=== PATIENT | female | born 1940 | race Caucasian/White ===

== ENCOUNTER 2016-03-04 05:15 | Inpatient (IN) | payer OTHER ==
[~2016-03-04] VITALS: Ht 162.6 cm; Wt 68.5 kg
[2016-03-04] VITALS (11 sets, daily range): BP systolic 94–146; BP diastolic 45–76
--- NOTE | ~2016-03-04 | EKG ---
[address] [address] ELECTROCARDIOGRAM REPORT Name: SAPNA GALDAMEZ Room #: 150-2 ADM IN M.R.#: [id number] Admission: 03/04/16 Attend Phys: Dallas Bergeron MD Discharge: Date of : 40 Report #: [id number] THIS REPORT FOR: //name// [facility] Test Date: 2016-03-04 Test Time: 06:41:03 Pat Name: SAPNA GALDAMEZ Department: Room: 150 2 Gender: F Access Nurse: MATHEW : 1940 Requested By: Dallas Bergeron Order Number: [id number] MD: Moisés August Measurements Intervals Bear Rate: 73 P: 46 TX: 130 QRS: 53 QRSD: 97 T: 32 QT: 402 QTc: 443 Interpretive Statements Sinus rhythm No significant abnormality No previous ECG available for comparison Electronically Signed On 03-04-2016 8:11:43 [employer] T[employer]ING TECHNICIAN by Moisés August [email or web address] <ELECTRONICALLY SIGNED> By: Moisés August MD, [facility] 03/04/16 0811 [id number] Moisés August MD, FACC /EPI
--- NOTE | ~2016-03-04 | O ---
[facility] [place] [address] OPERATIVE REPORT Name: SAPNA GALDAMEZ [id number] Admission: 03/04/16 Attend Phys: Dallas Bergeron MD Discharge: Date of : 40 Report #: [id number] THIS REPORT FOR: //name// CC: [facility] physician/PCP Dallas Bergeron DATE OF SERVICE: 03/04/2016 PREOPERATIVE DIAGNOSES: 1. Left hindfoot osteoarthritis. 2. Left hindfoot flat foot deformity. 3. Retained hardware, left foot. POSTOPERATIVE DIAGNOSES: 1. Left hindfoot osteoarthritis. 2. Left hindfoot flat foot deformity. PROCEDURE: Left foot triple arthrodesis and hardware removal, left foot. SURGEON: Dallas Bergeron M.D. ANESTHESIA: General. ESTIMATED BLOOD LOSS: Minimal. DRAINS: No drains. TOURNIQUET TIME: 90 minutes. DESCRIPTION OF PROCEDURE: The patient was brought to the operating room, where she was placed under general anesthesia. Once under adequate general anesthesia, her left lower extremity was prepped and draped in a sterile manner. The extremity was elevated, exsanguinated and tourniquet placed to 300 mmHg. A lateral incision overlying the sinus tarsi and extending across the calcaneocuboid joint was then made. It was dissected down through the soft tissue to the bone, elevating the extensor digitorum and the fat pad from the sinus tarsi and the calcaneocuboid joint. These joints were then prepared with osteotomes, curettes and a og to good bleeding subchondral bone. A dorsal incision was made over the talonavicular joint and this as well was prepared in a similar manner. The patient did have two 6.5-mm solid screws in the calcaneus, which through a 2-cm incision over the posterior heel, were then removed utilizing fluoroscopy for guidance. Demineralized bone matrix allograft was then placed into each of the joints and cancellous allograft was placed into the sinus tarsi, and subsequent fixation across each of the joints was then achieved utilizing fluoroscopy for guidance. Two 7.3-mm cannulated screws were placed across the subtalar joint from dorsal to plantar and two 4.5-mm [address] [address] OPERATIVE REPORT Name: SAPNA GALDAMEZ Room #: 542-P [facility]..#: [id number] Admission: 03/04/16 Attend Phys: Dallas Bergeron MD Discharge: Date of : 40 Report #: [id number] cannulated screws were placed across the talonavicular and calcaneocuboid joints respectively utilizing fluoroscopy for guidance. Excellent fixation and alignment was achieved in this manner. The wounds were irrigated copiously and closed with 2-0 Vicryl in deep and subcutaneous tissues. Haylee were used for the skin. The wounds were dressed with Xeroform, 4 x 4s, and a sterile soft compressive dressing with a short leg cast was placed. Tourniquet was let down at 90 minutes. Toes were pink and warm, with good capillary refill. There were no complications from the procedure. The patient tolerated the procedure well and went to the recovery room without incident. <ELECTRONICALLY SIGNED> By: Dallas Bergeron MD 03/05/16 1003 [id number] [id number] Dallas Bergeron MD /nt
[~2016-03-04 05:15] MED LIST: HYDROXYCHLOROQ200 M1 PO; MULTIVITAMINS1 EAC7 PO; PRILOSEC OTC20 MG PO
[2016-03-05 00:10] VITALS: BP 114/57
[2016-03-05 04:06] VITALS: BP 120/57
[2016-03-05 06:03] LABS: POTASSIUM 3.7 mmol/L (3.5-5.1)
[2016-03-05 07:56] VITALS: BP 136/61
[2016-03-05 15:20] VITALS: BP 141/61
[2016-03-05 20:11] VITALS: BP 153/66
[2016-03-06 04:12] VITALS: BP 137/72
[2016-03-06 08:40] VITALS: BP 114/47
[2016-03-06 13:33] VITALS: BP 114/47
== END 2016-03-06 13:45 | disposition home or self-care (01) | DRG 497 ==
LOC: 5S 05:15 → TBA 05:15 → PRE 10:35 → 5S 10:48 → PRE 11:26 → 5S 03-05 10:07
PROVIDERS: Orthopaedic Surgery Foot and Ankle Surgery
PROC: 0SP Lower Joints, Removal (ICD-10-PCS; principal; 2016-03-04)
PROC: 0SGJ07Z Fusion of Left Tarsal Joint with Autologous Tissue Substitute, Open Approach (ICD-10-PCS; principal; 2016-03-04)
PROC: [UNRECOGNIZED PROCEDURE] (principal; 2016-03-04)
DX: M19.072 Primary osteoarthritis, left ankle and foot (principal); M21.42 Flat foot [pes planus] (acquired), left foot; Z88.0 Allergy status to penicillin; Z88.2 Allergy status to sulfonamides
CPT/HCPCS: 10785; 50010; 50101; 50386; 50679; 50951; 51014; 51412; 52120; 53023; 53170; 55430; 56524; 57091; 62110; 62900; 70005